=== PATIENT | male | born 1940 | race Caucasian/White ===

== ENCOUNTER → 2018-07-15 14:17 | Outpatient (CLI) | payer MEDICARE, SELFPAY ==
--- NOTE | 2018-07-15 | DI.US.S_ITS ---
PROCEDURE: US ABDOMEN COMPLETE INDICATIONS: HEPATOMEGALY TECHNIQUE: Real-time scanning was performed of the abdominal and retroperitoneal organs, with image documentation. COMPARISON: None. FINDINGS: Liver: Liver is normal in size and homogeneous in echotexture. Gallbladder: No gallstones identified. Normal gallbladder wall. No pericholecystic fluid. Negative sonographic Fowler sign. Biliary ducts: Intrahepatic bile ducts are non-dilated. Extrahepatic bile duct caliber measures 2.0 mm. Normal is 6-7 mm or less in diameter, or 10 mm or less post-cholecystectomy. Pancreas: Visualized portions of the pancreas are sonographically normal. Spleen: Spleen is normal in size and homogeneous in echotexture. Kidneys: Kidneys are normal in size and echotexture. Right kidney measures 11.9 cm long; left kidney measures 11.6 cm long. No hydronephrosis or nephrolithiasis. No solid masses. Aorta: Visualized aorta is normal in caliber at less than 3 cm. Iliacs: Not visualized. IVC: Intrahepatic inferior vena cava is patent. Miscellaneous: No free abdominal fluid. IMPRESSION: 1. Normal exam. Dictated by: Mahesh Noble [facility] Interpreted: Samir Hall MD on 07/15/2018 at 15:17 Approved by: Samir Hall M.D. on 07/15/2018 at 16:42
--- NOTE | 2018-07-15 | DI.RAD.S_ITS ---
PROCEDURE: XR CHEST 2V INDICATIONS: COUGH TECHNIQUE: 2 views of the chest were acquired. COMPARISON: [facility], , CHEST 2 VIEW, 10/20/2011, 10:16. FINDINGS: Surgical changes and devices: None. Lungs and pleura: No pleural effusions or pneumothorax. Lungs are clear. Mediastinum: Mediastinal contours are normal. Heart size is normal. Bones and chest wall: No suspicious bony abnormalities. Soft tissues appear unremarkable. IMPRESSION: No acute pulmonary process. Dictated by: Sara Henderson M.D. on 07/15/2018 at 15:17 Approved by: Sara Henderson M.D. on 07/15/2018 at 15:17
--- NOTE | 2018-07-15 | DI.RAD.S_ITS ---
PROCEDURE: XR LUMBAR SPINE 2-3V INDICATIONS: CHRONIC RIGHT SIDED LOW BACK PAIN WITHOUT SCIATICA TECHNIQUE: 3 views of the lumbar spine were acquired. COMPARISON: None. FINDINGS: Bones: 5 [id number] vertebrae are present. There is trace retrolisthesis of L1 on L2, L2 on L3, L3 and L4, L4-L5 and L5 on S1. Mild multilevel disc space narrowing is present. There is moderate to severe foraminal narrowing at L5-S1, minimal at L1-L2, L3-4. No vertebral body compression fractures. No suspicious bony lesions. Soft tissues: Overlying bowel gas pattern is normal. No suspicious soft tissue calcifications. IMPRESSION: Multilevel degenerative changes as above. Dictated by: Sara Henderson M.D. on 07/15/2018 at 15:17 Approved by: Sara Henderson M.D. on 07/15/2018 at 15:18
== END ==
PROVIDERS: PCP Family Medicine; Visit Provider Family Medicine
DX: R16.0 Hepatomegaly, not elsewhere classified (principal); R05 Cough; M54.5 Low back pain; G89.29 Other chronic pain; M85.88 Other specified disorders of bone density and structure, other site; M47.816 Spondylosis without myelopathy or radiculopathy, lumbar region; M47.817 Spondylosis without myelopathy or radiculopathy, lumbosacral region
CPT/HCPCS: 71046; 72100; 76700

== ENCOUNTER 2019-06-07 09:10 | Day surgery (SDC) | payer MEDICARE, SELFPAY ==
[2019-06-07] MEDS: PROPARACAINE 0.5% OPHTH SOL 2 DROPS EYE-OP (10:03)
[2019-06-07 10:04] VITALS: BMI 26.4
[2019-06-07] MEDS: CATARACT EYE COMPOUND (10 DROPS/SYRINGE) 3 DROPS EYE-OP (10:09)
[2019-06-07 10:10] VITALS: BP 101/65; PULSE 58; RESP 16; TEMP 36.4; O2SAT 98
--- NOTE | 2019-06-07 10:53 | PM.PREOP ---
Pre-operative Note Interval Note History & Physical reviewed/Exam performed by Physician: No Changes to H&P: No
--- NOTE | 2019-06-07 10:53 | PM.OP.1 ---
Operative Date/Time/Diagnoses Pre-op diagnosis: Nuclear cataract right eye Procedure & Clinicians Procedure: Cataract Surgery Same procedure as scheduled: Yes Surgeon: Alonzo Hollis Anesthesia Type: MAC +/- and Sedation Operative Notes Procedure in detail: Patient brought to the operating suite. Tetracaine drops placed in the right eye. Marking instrument was used to zack the vertical and horizontal meridians. Patient was prepped and draped in sterile manner. Wire lid speculum was placed in the eye. Marking instrument was used to zack the 30 degree meridain. Betadine drops were placed on the eye. This was irrigated. Lidocaine jelly was placed on the eye. A paracentesis port was created with a side-port blade. 0.1 mL 1% preservative free lidocaine was injected into the anterior chamber. The anterior chamber was deepened with viscoelastic. 2.6 mm keratome was used to create a temporal clear corneal incision. Cystotome and Utrata forceps were used to create continuous tear capsulorrhexis. Balanced salt solution was used to hydro dissect the nucleus. The phacoemulsification handpiece was inserted and the nucleus was removed using the stop and chop technique. The irrigation aspiration handpiece was inserted and the remaining cortex was removed. Anterior chamber was deepened with viscoelastic. An Summers [id number] intraocular lens with a power of 20.0 was injected into the capsular bag. Irrigation aspiration handpiece was inserted and the remaining viscoelastic was removed. The lens was rotated to the 30 degree meridian. Incision was hydrated with balanced salt solution and found to be leak free with pressure with Weck-Melisa sponges. 0.1 mL Vigamox injected anterior chamber. 0.3 mL Kenalog 10 mg was injected subconjunctivally. Lid speculum was removed. The patient left the operating room in excellent condition. Complications: none Post-operative Condition: stable Disposition: same day surgery
--- NOTE | 2019-06-07 11:38 | SUR.OPER ---
Supine on eye stretcher, head on extension cradle secured with tape. Arms tucked at sides with blanket. Pillow under knees.
[2019-06-07] MEDS: PHENYLEPHRINE/LIDOCAINE VIAL (OR) 0.2 ML EYE-OP (11:39)
[2019-06-07] MEDS: TRIAMCINOLONE 50 MG/5 ML VIAL INJ (11:40)
[2019-06-07] MEDS: TETRACAINE 0.5% OPHTH DROPS 4 ML 2 DROPS EYE-OP (11:40)
[2019-06-07] MEDS: LIDOCAINE JELLY 2% 5 ML 1 APPLIC TOP (11:40)
[2019-06-07] MEDS: CHONDROIDTIN/SOD HYALURONATE 1.05 ML SYRINGE INTRAOCULA (11:40)
[2019-06-07] MEDS: BALANCED SALT IRRIG SOLN NO.2 500 ML, EPINEPHrine 1 MG IRR (11:41)
[2019-06-07] MEDS: MOXIFLOXACIN INJ 5 MG/ML VIAL EYE-OP (11:41)
[2019-06-07 12:00] VITALS: BP 109/71; PULSE 58; RESP 16; TEMP 36.2; O2SAT 99
== END 2019-06-07 12:10 | disposition home or self-care (01) ==
PROVIDERS: PCP Family Medicine; Visit Provider Ophthalmology
PROC: (CPT 66984; principal; 2019-06-07 11:15)
DX: H25.11 Age-related nuclear cataract, right eye (principal)
CPT/HCPCS: 66984; J0171; J2250; J3301; V2787

== ENCOUNTER 2019-06-21 09:13 | Day surgery (SDC) | payer MEDICARE, SELFPAY ==
[2019-06-21 09:50] VITALS: BP 111/65; PULSE 48; RESP 18; TEMP 36.3; O2SAT 98; BMI 25.1
[2019-06-21] MEDS: PROPARACAINE 0.5% OPHTH SOL 2 DROPS EYE-OP (10:00)
[2019-06-21] MEDS: CATARACT EYE COMPOUND (10 DROPS/SYRINGE) 3 DROPS EYE-OP (10:04)
--- NOTE | 2019-06-21 10:29 | PM.PREOP ---
Pre-operative Note Interval Note History & Physical reviewed/Exam performed by Physician: No Changes to H&P: No
--- NOTE | 2019-06-21 10:29 | PM.OP.1 ---
Operative Date/Time/Diagnoses Pre-op diagnosis: Nuclear Cataract Left eye Post-op diagnosis: same Procedure & Clinicians Surgeon: Alonzo Hollis Anesthesia Type: MAC +/- and Sedation Operative Notes Procedure in detail: Patient brought to the operating suite. Tetracaine drops placed in the left eye. Marking instrument was used to zack the vertical and horizontal meridians. Patient was prepped and draped in sterile manner. Wire lid speculum was placed in the eye. marking instrument was used to zack the 150 degree meridian. Betadine drops were placed on the eye. This was irrigated. Lidocaine jelly was placed on the eye. A paracentesis port was created with a side-port blade. 0.1 mL 1% preservative free lidocaine was injected into the anterior chamber. The anterior chamber was deepened with viscoelastic. 2.6 mm keratome was used to create a temporal clear corneal incision. Cystotome and Utrata forceps were used to create continuous tear capsulorrhexis. Balanced salt solution was used to hydro dissect the nucleus. The phacoemulsification handpiece was inserted and the nucleus was removed using the stop and chop technique. The irrigation aspiration handpiece was inserted and the remaining cortex was removed. Anterior chamber was deepened with viscoelastic. An Summers [id number] intraocular lens with a power of 21.5 was injected into the capsular bag. Irrigation aspiration handpiece was inserted and the remaining viscoelastic was removed. The lens was rotated to the 150 degree meridian. Incision was hydrated with balanced salt solution and found to be leak free with pressure with Weck-Melisa sponges. 0.1 mL Vigamox injected anterior chamber. 0.3 mL Kenalog 10 mg was injected subconjunctivally. Lid speculum was removed. The patient left the operating room in excellent condition. Complications: none Post-operative Condition: stable Disposition: same day surgery
[2019-06-21] MEDS: BALANCED SALT IRRIG SOLN NO.2 500 ML, EPINEPHrine 1 MG IRR (10:42)
[2019-06-21] MEDS: CHONDROIDTIN/SOD HYALURONATE 1.05 ML SYRINGE INTRAOCULA (10:43)
[2019-06-21] MEDS: MOXIFLOXACIN INJ 5 MG/ML VIAL EYE-OP (10:43)
[2019-06-21] MEDS: TETRACAINE 0.5% OPHTH DROPS 4 ML 2 DROPS EYE-OP (10:43)
[2019-06-21] MEDS: LIDOCAINE JELLY 2% 5 ML 1 APPLIC TOP (10:43)
[2019-06-21] MEDS: TRIAMCINOLONE 50 MG/5 ML VIAL INJ (10:44)
[2019-06-21] MEDS: PHENYLEPHRINE/LIDOCAINE VIAL (OR) 0.2 ML EYE-OP (10:44)
[2019-06-21 11:04] VITALS: BP 113/70; PULSE 54; RESP 18; TEMP 36.1; O2SAT 100
== END 2019-06-21 11:22 | disposition home or self-care (01) ==
PROVIDERS: Family Provider Family Medicine; PCP Family Medicine; Visit Provider Ophthalmology
PROC: (CPT 66984; principal; 2019-06-21 11:15)
DX: H25.12 Age-related nuclear cataract, left eye (principal)
CPT/HCPCS: 66984; J0171; J2250; J3301; V2787

== ENCOUNTER → 2020-04-10 09:28 | Outpatient (CLI) | payer MEDICARE, SELFPAY ==
--- NOTE | 2020-04-10 | DI.MRI.S_ITS ---
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 COMPARISON: None. FINDINGS: Image quality: Excellent. Alignment and Curvature: There is normal bony alignment. Bone Marrow: Marrow demonstrates normal overall signal. Spinal Cord: Visualized spinal cord has normal size and signal. No cerebellar tonsillar herniation. Paraspinous Soft Tissues: No paravertebral masses. Prevertebral soft tissues are normal in thickness. C2-C3: There is mild degenerative disc disease with a posterior transverse broad-base disc bulge most prominent at the midline. This effaces CSF from the anterior thecal sac but does not distort the cord and no foraminal stenosis is found. Mild spinal stenosis appears present as a result. C3-C4: Slight degenerative disc disease, slight effacement of CSF from the anterior thecal sac without cord distortion. No foraminal stenosis. No significant spinal stenosis. C4-C5: Slight degenerative disc disease, mild facet osteoarthritis. No definite foraminal stenosis. No significant spinal stenosis. C5-C6: At this level there is a mild degree of degenerative disc disease with a mild posterior transverse disc bulge at the midline, and in the adjacent anterior spinal canal. There is a small degree of foraminal stenosis, slightly greater on the right than the left, and only a mild degree of anterior spinal stenosis is seen. The anterior cord is slightly flattened, but it is not displaced posteriorly within the spinal canal. C6-C7: The degenerative changes at this level are [id number], there is a posterior mild disc bulge. Facet osteoarthritis is mild to moderate and there is [id number] symmetric foraminal stenosis potentially impinging on the course of the C7 nerve roots. C7-T1: No significant spinal or foraminal stenosis. IMPRESSION: Multilevel degenerative disc disease, but mild in severity overall. Also, facet osteoarthritis is relatively mild in this patient. The most prominent degree of degenerative changes are seen at C5-6 and C6-7, without subluxation, and no disc herniation is found. Dictated by: Mateus Carbone M.D. on 04/10/2020 at 14:58 Approved by: Mateus Carbone M.D. on 04/10/2020 at 15:03
--- NOTE | 2020-04-10 | DI.RAD.S_ITS ---
PROCEDURE: XR CERVICAL SPINE 2V OR 3V INDICATIONS: CERVICAL DISC DISORDER AT C5-C6 LVL W/ MYELOPATHY TECHNIQUE: 3 view(s) of the cervical spine were acquired. COMPARISON: None. FINDINGS: Bones: No fractures or dislocations to the T1 level. The lateral masses of C1 appear intact on the odontoid view. No suspicious bony lesions. Multilevel disc degeneration, most notably in moderate at the C6-C7 and C7-T1 levels. Mild multilevel uncovertebral hypertrophy. Soft tissues: No prevertebral soft tissue swelling. IMPRESSION: Mild multilevel spondylosis. Dictated by: Mahesh OROZCO Interpreted: Sara Henderson MD on 04/10/2020 at 11:23 Approved by: Sara Henderson M.D. on 04/10/2020 at 15:00
== END ==
PROVIDERS: Family Provider Family Medicine; PCP Family Medicine; Referring Provider Family Medicine; Visit Provider Family Medicine
DX: M50.022 Cervical disc disorder at C5-C6 level with myelopathy (principal); M47.12 Other spondylosis with myelopathy, cervical region
CPT/HCPCS: 72040; 72141

== ENCOUNTER → 2021-01-22 09:37 | Outpatient (CLI) | payer MEDICARE, SELFPAY ==
--- NOTE | 2021-01-22 09:39 | DI.RAD.S_ITS ---
PROCEDURE: XR KNEE LT 3V INDICATIONS: CHRONIC KNEE PAIN TECHNIQUE: 3 views of the knee were acquired. COMPARISON: None. FINDINGS: Bones: No fractures or dislocations. No suspicious bony lesions. Soft tissues: No joint effusion. No suspicious soft tissue calcifications. IMPRESSION: No trauma found. Dictated by: Mateus Carbone M.D. on 01/22/2021 at 10:24 Approved by: Mateus Carbone M.D. on 01/22/2021 at 10:25
--- NOTE | 2021-01-22 09:39 | DI.RAD.S_ITS ---
PROCEDURE: XR KNEE RT 3V INDICATIONS: CHRONIC KNEE PAIN TECHNIQUE: 3 views of the knee were acquired. COMPARISON: None. FINDINGS: Bones: No fractures or dislocations. No suspicious bony lesions. Soft tissues: No joint effusion. There is prepatellar soft tissue thickening anterior and to the inferior margin of the patella. No suspicious soft tissue calcifications. IMPRESSION: No trauma found. Prepatellar soft tissue thickening is seen on the lateral view-please correlate for chronicity and etiology. Dictated by: Mateus Carbone M.D. on 01/22/2021 at 10:25 Approved by: Mateus Carbone M.D. on 01/22/2021 at 10:26
== END ==
PROVIDERS: Family Provider Family Medicine; PCP Family Medicine; Referring Provider Family Medicine; Visit Provider Family Medicine
DX: M25.561 Pain in right knee (principal); M25.562 Pain in left knee; G89.29 Other chronic pain
CPT/HCPCS: 73562

== ENCOUNTER → 2021-02-14 17:53 | Outpatient (CLI) | payer MEDICARE, SELFPAY ==
[2021-02-14 18:37] LABS: C-Reactive Protein Quant < 0.5 mg/dL (<1.0); Uric Acid 4.7 mg/dL (3.5-8.5)
[2021-02-14 18:40] LABS: Rheumatoid Factor < 8.6 IU/mL (<12.0)
[2021-02-14 20:10] LABS: Erythrocyte Sedimentation Rate 5 MM/HR (0-15)
[2021-02-16 17:23] LABS: ANA Screen, IFA Negative (.)
== END ==
PROVIDERS: Family Provider Family Medicine; PCP Family Medicine; Referring Provider Orthopaedic Surgery; Visit Provider Orthopaedic Surgery
DX: M25.461 Effusion, right knee (principal); M25.462 Effusion, left knee
CPT/HCPCS: 36415; 84550; 85651; 86038; 86140; 86430

== ENCOUNTER → 2021-10-21 11:06 | Outpatient (CLI) | payer MEDICARE, SELFPAY ==
[2021-10-21 19:17] LABS: Add Manual Diff / Slide Review NO; Basophils Absolute Auto 100 /uL (0-100); Basophils Percent Auto 1.1 % (0-2); Eosinophils Absolute Auto 200 /uL (0-450); Hematocrit 42.3 % (41-53); Hemoglobin 14.3 g/dL (13.5-17.5); Lymphocytes Absolute Auto 1400 /uL (1100-4500); Mean Corpuscular HGB Conc 33.8 % (30-36); Mean Corpuscular Hemoglobin 30.2 PG (26-34); Mean Corpuscular Volume 89.5 fL (80-100); Monocytes Absolute Auto 600 /uL (0-900); Monocytes Percent Auto 7.3 % (3-14); Neutrophils Absolute Auto 5700 /uL (1500-7000); Neutrophils Percent Auto 71.6 % (50-75); Platelet Count 181 X10^3/uL (150-400); Red Blood Cell Count 4.73 X10^6/uL (4.5-5.9); Red Cell Distribution Width 13.9 % (11.6-14.8); White Blood Cell Count 7.9 X10^3/uL (4.5-11.0)
[2021-10-21 19:37] LABS: Alanine Aminotransferase 16 IU/L (<50); Albumin 4.3 g/dL (3.5-5.0); Albumin Globulin Ratio 1.8 (1.0-2.8); Alkaline Phosphatase 50 U/L (38-126); Aspartate Aminotransferase 28 IU/L (17-59); BUN Creatinine Ratio 26.1 (6-22); Bilirubin Total 0.4 mg/dL (0.2-1.3); Blood Urea Nitrogen 24 mg/dL (9-20); Calcium 9.1 mg/dL (8.4-10.2); Carbon Dioxide 28 mmol/L (22-32); Chloride 105 mmol/L (98-107); Estimated Glomerular Filt Rate > 60.0 mL/min (>60); Globulin 2.4 g/dL (1.7-4.1); Glucose 92 mg/dL (80-110); HEMOLYSIS < 15 (0-50); Potassium 4.4 mmol/L (3.4-5.1); Sodium 140 mmol/L (137-145); Total Protein 6.7 g/dL (6.3-8.2)
[2021-10-21 20:08] LABS: Prostate Specific Antigen Scrn 0.183 ng/mL (0.1-4.0)
== END ==
PROVIDERS: Family Provider Family Medicine; PCP Family Medicine; Visit Provider Family Medicine
DX: M81.0 Age-related osteoporosis without current pathological fracture (principal); Z12.5 Encounter for screening for malignant neoplasm of prostate
CPT/HCPCS: 80053; 85025; G0103

== ENCOUNTER → 2021-12-12 11:28 | Outpatient (CLI) | payer MEDICARE, SELFPAY ==
[2021-12-12 19:31] LABS: TSH w/ Reflex to FT4 0.84 uIU/mL (0.47-4.68)
[2021-12-12 20:18] LABS: Vitamin B12 806 pg/mL (239-931)
== END ==
PROVIDERS: Family Provider Family Medicine; PCP Family Medicine; Visit Provider Family Medicine
DX: R53.83 Other fatigue (principal)
CPT/HCPCS: 82607; 84443

== ENCOUNTER 2023-05-03 08:12 | Emergency (ER) | payer MEDICARE, SELFPAY ==
[2023-05-03 08:15] VITALS: BP 109/70; PULSE 73; RESP 18; TEMP 36.7; O2SAT 100; BMI 25.8
[2023-05-03 08:25] VITALS: PULSE 69; O2SAT 99
[2023-05-03 08:26] VITALS: BP 92/60; PULSE 71; O2SAT 99
[2023-05-03 08:30] VITALS: BP 90/52; PULSE 56; O2SAT 96
--- NOTE | 2023-05-03 08:42 | ED_ITS ---
HPI - General Adult General Chief complaint: Urogenital-Male Stated complaint: Unable to urinate Time Seen by Provider: 05/03/23 08:17 Source: patient Mode of arrival: EMS Limitations: no limitations History of Present Illness HPI narrative: Patient is an 83-year-old male. States he has never had an issue with his prostate although he is on tamsulosin. He states he was placed on this medication to try to decrease the amount that he urinates at night. He denies any fevers. He states that he felt like he had a last normal urination almost 48 hours ago. This was a day after he had a COVID shot. He started to then have vomiting. Has been several hours since he has had any urine output. Is having quite a bit of lower abdominal discomfort. Has never had a Del Cid catheter before. Related Data Previous Rx's Medication Instructions Recorded ibuprofen 800 mg tablet See Rx Instructions .Route 02/26/22 .COMPLEX #60 tabs alendronate 70 mg tablet 70 mg PO QWEEK #12 tabs 07/21/22 finasteride 5 mg tablet 5 mg PO QDAY #90 tabs 07/21/22 omeprazole 40 mg capsule,delayed 40 mg PO DAILY #90 caps 07/21/22 release trazodone 50 mg tablet 25 mg PO BEDTIME #45 tabs 08/29/22 bupropion HCl 100 mg tablet,12 hr 100 mg PO BID #180 ea 12/23/22 sustained-release (Wellbutrin SR) citalopram 40 mg tablet 40 mg PO DAILY #90 tabs 12/23/22 tamsulosin 0.4 mg capsule 0.8 mg PO DAILY #180 caps 12/23/22 Allergies Allergy/AdvReac Type Severity Reaction Status Date / Time No Known Drug Allergies Allergy Verified 05/03/23 08:54 Review of Systems Constitutional Constitutional: Reports system reviewed and no additional complaints, except as documented Gastrointestinal Gastrointestinal: Reports system reviewed and no additional complaints, except as documented Genitourinary Genitourinary: Reports system reviewed and no additional complaints, except as documented Integumentary/Breasts Skin/Breast: Reports system reviewed and no additional complaints, except as documented Patient History Medical History Acute pain associated with inflammation Benign prostatic hyperplasia without lower urinary tract symptoms Bilateral hearing loss BPH (benign prostatic hyperplasia) Constipation, unspecified Diarrhea, unspecified Dog bite (~12/19/19) Hearing loss Impacted cerumen, bilateral Insomnia Right knee pain Routine general medical examination at health care facility Travel advice encounter Surgical History (Updated 10/22/21 @ 20:18 by rBittany Monterroso) Anesthesia History of tonsillectomy (~1950) Family History (Updated 10/22/21 @ 20:19 by Brittany Monterroso) Father Diabetes mellitus Family/Other Developmental disability Social History household members: spouse Smoking Status: Never smoker Smoking Status: Never smoker Exam Initial Vital Signs Initial Vital Signs: Vital Signs Temperature 98.1 F 05/03/23 08:15 Pulse Rate 73 05/03/23 08:15 Respiratory Rate 18 05/03/23 08:15 Blood Pressure 109/70 05/03/23 08:15 Pulse Oximetry 100 05/03/23 08:15 Oxygen Delivery Method Room Air 05/03/23 08:15 HENMT Head: normal to inspection and normocephalic Resp Effort & Inspection: normal respiratory effort Cardio Rate: regular rate Other: Del Cid catheter in place, normal external male genitalia Skin General: no rashes or lesions noted Course Vital Signs Vital signs: Vital Signs - 8 hr 05/03/23 08:15 05/03/23 08:25 05/03/23 08:26 Temperature 98.1 F Pulse Rate 73 69 Respiratory Rate 18 Blood Pressure 109/70 92/60 Pulse Oximetry 100 99 Oxygen Delivery Method Room Air 05/03/23 08:26 05/03/23 08:30 05/03/23 08:30 Temperature Pulse Rate 71 56 L Respiratory Rate Blood Pressure 90/52 L Pulse Oximetry 99 96 Oxygen Delivery Method Medical Decision Making Lab Data Lab results reviewed: Yes I reviewed the patient's lab results. Labs: Urine Dip Bedside Urine Glucose Negative Bedside Urine Bilirubin - Negative Bedside Urine Ketone - Negative Urine Specific Keystone 1.015 Bedside Urine Occult Blood - Negative Bedside Urine pH 6.5 Bedside Urine Protein - Negative Bedside Urine Urobilinogen - Negative Bedside Urine Nitrite - Negative Bedside Urine Leukocytes - Negative Esterase Point of care testing: Urine Dip Bedside Urine Glucose Negative Bedside Urine Bilirubin - Negative Bedside Urine Ketone - Negative Urine Specific Keystone 1.015 Bedside Urine Occult Blood - Negative Bedside Urine pH 6.5 Bedside Urine Protein - Negative Bedside Urine Urobilinogen - Negative Bedside Urine Nitrite - Negative Bedside Urine Leukocytes - Negative Esterase MDM Narrative Medical decision making narrative: Del Cid catheter was placed with a return of greater than 1 L of urine. His urinalysis shows no signs of infection. He is on Flomax already. Will discharge patient home with Del Cid catheter in place and instructions to contact Urology for follow-up. Discharge Plan Departure Patient Disposition: Home Clinical Impression: Acute urinary retention Instructions: How to Care for Your Del Cid Catheter -- Male, DI for Urinary Retention in Men Activity Restrictions/Additional Instructions: Recommend you continue to take all of your medications as directed. Tomorrow contact the urology office at the number provided below for a follow-up later this week to discuss having the urinary catheter removed and further workup. Return to the emergency department for new symptoms. Prescriptions: No Action ibuprofen 800 mg tablet See Rx Instructions .ROUTE .COMPLEX Qty: 60 1RF Dose Instruction: TAKE 1 TABLET EVERY 8 HOURSAS NEEDED FOR PAIN Rx Instructions: TAKE 1 TABLET EVERY 8 HOURSAS NEEDED FOR PAIN alendronate 70 mg tablet 70 mg PO QWEEK Qty: 12 3RF finasteride 5 mg tablet 5 mg PO QDAY Qty: 90 3RF omeprazole 40 mg capsule,delayed release(DR/EC) 40 mg PO DAILY Qty: 90 3RF trazodone 50 mg tablet 25 mg PO BEDTIME Qty: 45 3RF bupropion HCl [Wellbutrin SR] 100 mg tablet sustained-release 12 hr 100 mg PO BID Qty: 180 3RF citalopram 40 mg tablet 40 mg PO DAILY Qty: 90 3RF tamsulosin 0.4 mg capsule 0.8 mg PO DAILY Qty: 180 3RF Referrals: Sandip He MD [Physician] - Dannie Mccarthy MD [Primary Care Provider] - Stand Alone Forms: Patient Portal/API
[2023-05-03 09:00] VITALS: BP 92/52; PULSE 55; O2SAT 96
== END 2023-05-03 09:35 | disposition home or self-care (01) ==
PROVIDERS: Emergency Provider Emergency Medicine; Family Provider Family Medicine; PCP Family Medicine
DX: R33.9 Retention of urine, unspecified (principal)
CPT/HCPCS: 51702; 51798; 81003; 99283

== ENCOUNTER → 2023-05-26 11:26 | Outpatient (CLI) | payer MEDICARE, SELFPAY | PROVIDERS: Family Provider Family Medicine; PCP Family Medicine; Visit Provider Specialist | DX: N39.0 Urinary tract infection, site not specified (principal); R33.9 Retention of urine, unspecified; N40.1 Benign prostatic hyperplasia with lower urinary tract symptoms; N13.8 Other obstructive and reflux uropathy; N30.01 Acute cystitis with hematuria; Z68.25 Body mass index [BMI] 25.0-25.9, adult | CPT/HCPCS: 51798; 81002; 87077; 87086; 87186; 96372; 99215; J0694 ==

== ENCOUNTER 2023-06-08 10:50 | Day surgery (SDC) | payer MEDICARE, SELFPAY ==
[2023-06-03 11:26] VITALS: BMI 26.4
[2023-06-08] VITALS (12 sets, daily range): BP systolic 104–133; BP diastolic 49–68; PULSE 61–74; RESP 10–20; TEMP 35.9–36.6; O2SAT 93–100; BMI 26.4
--- NOTE | 2023-06-08 | PATH_ITS ---
[facility] Accession Number: [id number] No. of containers..01 Tissue . 01 Material submitted: . prostate - PROSTATE CHIPS . 01 Diagnosis: Prostate Chips (Weight 7 grams): Benign prostatic tissue with patchy stromal and glandular hyperplasia. MRV 06/17/2023 1538 Local . 01 Electronically signed: . Justyna Briones MD, Pathologist NPI- [id number] . 01 Gross description: . The specimen is received in formalin with no patient identifiers and no designation (authorization form received), and consists of multiple nelson, rubbery soft tissue fragments weighing 7 grams and aggregating to 4.4 x 4.0 x 1.3 cm. No discrete lesions are identified. Specimen is submitted entirely in cassettes A1-A4. ([id number]) /KAL 06/16/2023 0941 Local . 01 Microscopic: . An immunohistochemistry staining cocktail of high molecular weight cytokeratin (HMWK)+p63 is performed to further identify the cells of interest. The controls stain appropriately. . RESULTS Block A3 HMWK+p63: Positive in region of interest. . The presence of HMWCK+p63 at the focus interest mitigates against the presence of prostatic adenocarcinoma in this tissue. . * This test was developed and its performance characteristics determined by [facility]. It has not been cleared or approved by the U.S. Food and Drug Administration. The FDA has determined that such clearance or approval is not necessary. This test is used for clinical purposes. It should not be regarded as investigational or for research. . 01 Pathologist provided ICD-10: R33.9, N32.0, N40.1 . 01 CPT . 557110, C30281 Specimen Comment: A courtesy copy of this report has been sent to [phone] Performed at: 01 [facility] [address] [facility], [place], [place] [id number] MD Dimitry Walsh MD Phone: [phone]
[2023-06-08] MEDS: LACTATED RINGERS 1,000 ML 42 ML IV (12:13)
[2023-06-08] MEDS: ACETAMINOPHEN IV 1,000 MG/100 ML VIAL 400 MG IV (12:14)
[2023-06-08] MEDS: VANCOMYCIN 1,000 MG/200 ML PIGGYBACK 200 MG IV (12:27)
--- NOTE | 2023-06-08 13:47 | PM.PREOP ---
Pre-operative Note Interval Note History & Physical reviewed/Exam performed by Physician: Yes Changes to H&P: No
[2023-06-08] MEDS: GENTAMICIN 240 MG in SODIUM CHLORIDE 0.9% 100 ML 106 MG IV (15:13)
--- NOTE | 2023-06-08 15:29 | SUR.OPER ---
Lithotomy on padded OR bed, head on pillow, arms secured on padded arm boards at <90 degrees abduction. Legs secured in padded yellow fins stirrups.
[2023-06-08] MEDS: TRANEXAMIC ACID 1,000 MG in SODIUM CHLORIDE 0.9% 100 ML 200 MG IV (15:53)
[2023-06-08] MEDS: LACTATED RINGERS 1,000 ML 21 ML IV (16:06)
--- NOTE | 2023-06-08 16:08 | P.OP_ITS ---
Operative Date/Time/Diagnoses Date of procedure: 06/08/23 Time of procedure: 16:08 Pre-op diagnosis: 1. Bladder outlet obstruction. 2. History of urinary retention. Post-op diagnosis: same Procedure & Clinicians Procedure: 1. Transurethral resection of prostate. Same procedure as scheduled: Yes Indications: 1. Bladder outlet obstruction. 2. History of urinary retention. Surgeon: Warren Steel Click Yes if Unassisted: Yes Anesthesia Type: General Operative Notes Findings: 1. Urethra-normal caliber without annular stricture or lesion. 2. External sphincter-slightly gaping with normal overlying vascularity. 3. Prostate-4 cm length with markedly elevated median bar and moderate lateral lobe hyperplasia. 4. bladder-2+ trabeculation. Cellule formation and various areas. Ureteral orifices in normal position bilaterally with clear efflux. Closure Type: not applicable Specimen(s): other (Prostate chips) Applied: catheter ([address] hematuria catheter to normal saline continuous bladder irrigation.) Estimated Blood Loss (mL): 5 Blood products transfused: none Procedure in detail: The patient was positioned in supine was administered general anesthesia. The patient was then repositioned in semi lithotomy in the lower abdomen, genitalia, and groin were then prepped and draped in sterile fashion. The resectoscope was then advanced lower urinary tract under direct visualization with the findings as described above. A TUR loop was then fitted to the working element. Incisions were made at the 1 and 11 positions from bladder neck to a point just proximal of the verumontanum. The intervening anterior tissue was then resected to a level near the capsule. Next, the left followed by the right lateral lobe was resected from bladder neck to a point just proximal of the verumontanum again to a depth near the surgical capsule. Now the markedly elevated median lobe and intravesical protrusion of median lobe lip was resected from bladder neck to a point just proximal to the verumontanum. This resulted in a widely patent prostate fossa and bladder neck. Hemostasis was attained with the cautery mode with the loop. All chips were then collected and submitted to pathology for routine gross and microscopic examination hydrostatically and with the assistance of the Ilana evacuator. A 22 Kazakh, [address] hematuria catheter was then advanced into the bladder, the balloon inflated 30 cc and then to normal saline continuous bladder irrigation to gravity drainage. The patient was then repositioned in supine, was awakened, and then transferred to [facility] for transport to recovery awake and in stable condition. Complications: none Post-operative Condition: stable Disposition: PACU Plan for aftercare: Admit to acute care outpatient with a bed status.
[2023-06-08] MEDS: OXYCODONE IR 5 MG TABLET PO (16:33)
[2023-06-08] MEDS: TRIMETH/SULFA 160/800 (DS) TABLET 1 TAB PO (20:45)
[2023-06-08] MEDS: TRAZODONE 50 MG TABLET 25 MG PO (20:46)
[2023-06-08] MEDS: buPROPion SR 100 MG TAB PO (20:46)
[2023-06-09] VITALS: BP 98/51; PULSE 60; RESP 16; TEMP 36.2; O2SAT 96
[2023-06-09 04:00] VITALS: BP 99/49; PULSE 65; RESP 19; TEMP 36.8; O2SAT 95
[2023-06-09] MEDS: PANTOPRAZOLE DR 40 MG TABLET PO (05:03)
[2023-06-09 08:00] VITALS: BP 108/50; PULSE 68; RESP 18; TEMP 36.4; O2SAT 96
[2023-06-09] MEDS: FINASTERIDE 5 MG TABLET PO (08:13)
[2023-06-09] MEDS: TRIMETH/SULFA 160/800 (DS) TABLET 1 TAB PO (08:13)
[2023-06-09] MEDS: TAMSULOSIN 0.4 MG CAPSULE 0.8 MG PO (08:13)
[2023-06-09] MEDS: buPROPion SR 100 MG TAB PO (08:13)
--- NOTE | 2023-06-09 12:31 | PC.NURSE ---
A/O, voices needs. ind w/ mobility, ADLs. CBI s/p TURP POD 1. urine is light pink. scant bleeding / small dry clots at insertion site of liu, area cleansed w/ warm water & washcloth. Dr Steel doing rounds, verbal order received to remove liu. encourage patient to ambulate, and PVR after first void. contact MD if > 200. liu removed, several small clots in the liu, tip is intact. 1000: first void: light pink urine, 150cc. PVR 22cc. patient tolerated ambulating up and down hallway w/ strong steady gait. 1200: Dr steel to see patient. d/c orders received, w/ instructions for patient to see him in office in 6 weeks, prior to a trip patient and his plan to take in near future. see dc.
--- NOTE | 2023-06-09 12:33 | P.DS_ITS ---
History of Present Illness History of Present Illness Date Patient Seen: 06/09/23 Time Patient Seen: 07:30 Chief complaint: TURP Narrative: Jared is an 83-year-old gentleman with a long history of BPH/LUTS on dual therapy with tamsulosin and finasteride the presented in recent week with acute urinary retention of a proximally 1200 cc volume. He subsequently had a successful voiding trial but remained severely symptomatic despite maximal pharmacologic management of bladder outlet obstruction. Lower tract endoscopy revealed a very high median bar and intravesical protrusion of a median lobe lip. Prostate ultrasound measured prostate volume at about normal adult 20 g. Discussion with available options and his desires led to his request to schedule Transurethral resection of the prostate. Discharge Providers Provider Date of admission: 06/08/2023 Discharge Date: 06/09/23 Primary care physician: Dannie Mccarthy MD Discharge provider: Warrne Steel MD Summary Hospital Course Hospital Course: The patient was admitted on 06/08/2023 and underwent uncomplicated Transurethral resection of the prostate under general anesthesia. His postoperative course was entirely unremarkable in that he tolerated general diet immediately postoperatively, was able to ambulate without assistance and had no significant postoperative discomfort. On the morning of 06/09/2023 voiding trial was conducted with supervision. He subsequently voided on 2 occasions without difficulty in the morning with a postvoid residual volume measuring 20 cc. Urine showed some light blood-tinged. No pain or dysuria. By a proximally noon on 06/09/2023 the patient was stable for discharge. Exam Vital Signs (past 8 hours): - 06/09/23 08:00 Temperature 97.5 F L Pulse Rate 68 Respiratory Rate 18 Blood Pressure 108/50 L Pulse Oximetry 96 Oxygen Flow Rate 0 Oxygen Delivery Method Room Air,CPAP Oxygen Flow Rate 0 Narrative Exam Narrative: Ambulating about the room and drinking a beverage in no distress. [facility] Medical History (Updated 06/03/23 @ 11:44 by Anne Cool RN) Self-catheterizes urinary bladder (05/2023) Sleep apnea (~2016) History of urinary retention Urinary retention Hearing loss Insomnia Constipation, unspecified Bilateral hearing loss Diarrhea, unspecified Routine general medical examination at health care facility Travel advice encounter Dog bite (~12/19/19) Impacted cerumen, bilateral Benign prostatic hyperplasia without lower urinary tract symptoms Acute pain associated with inflammation Surgical History (Updated 06/03/23 @ 11:33 by Anne Cool RN) Hx of bilateral cataract extraction (2019) Anesthesia History of tonsillectomy (~1950) Family History Father Diabetes mellitus Family/Other Developmental disability Social History household members: spouse Smoking Status: Never smoker alcohol intake: current Discharge Assessment & Plan Assessment and Plan Assessment: Assessment: 1. Stable postoperative day 1 status post Transurethral resection of the prostate. 2. Pathology pending. Plan of Treatment: Plan: 1. Discharge home today. Post TURP driving, activity, lifting restrictions and follow-up explained per routine. 2. Follow-up and discuss pathology report as outpatient when final. 3. Follow-up in Urology Clinic in 6-8 weeks for clinical update and PVR. Discharge Plan Discharge Plan Patient Disposition: Home Provider Discharge Comment: Please contact the urology clinic to schedule your postop appointment for 6-8 weeks with PVR. Discharge orders & Medications Discharge Orders: Discharge (Order); Ordered 06/09/23 Ordered By: Warren Steel Prescriptions: Continued alendronate 70 mg tablet 70 mg PO QWEEK Qty: 12 3RF finasteride 5 mg tablet 5 mg PO QDAY Qty: 90 3RF omeprazole 40 mg capsule,delayed release(DR/EC) 40 mg PO DAILY Qty: 90 3RF trazodone 50 mg tablet 25 mg PO BEDTIME Qty: 45 3RF bupropion HCl [Wellbutrin SR] 100 mg tablet sustained-release 12 hr 100 mg PO BID Qty: 180 3RF citalopram 40 mg tablet 40 mg PO DAILY Qty: 90 3RF tamsulosin 0.4 mg capsule 0.8 mg PO DAILY Qty: 180 3RF sulfamethoxazole-trimethoprim 800 mg PO 2XD Follow up/Referrals: Dannie Mccarthy MD [Primary Care Provider] - Diet/Activity/Treatments Diet: Diet as Tolerated Activity: Refrain from lifting objects heavier than 15 lb x 4 weeks. Skin/Wound/Dressing Care Report to your healthcare provider any signs of infection, such as:: chills, fever, night sweats, increased pain and unusual drainage Visit Report/Discharge Packet Instructions: DI for Transurethral Resection of the Prostate Stand Alone Forms: Surgery Discharge Discharge Data Primary Care Provider: Dannie Mccarthy Attending Provider: Warren Steel
--- NOTE | 2023-06-09 14:33 | CM.DANOTE ---
Patient is an 83 yo male who was admitted on 06/08/23 for TURP. Pt has [facility] for insurance and his PCP is Dr. Dannie Mccarthy. EMR was reviewed. Per Urologist, pt tolerated TURP procedure well and has voided independently, ambulated, and tolerated diet and medically stable to d/c home with outpt f/u in 6 weeks. Per RN, no concerns noted at this time. SW observed pt making multiple laps around the hallways with steady gait and no need for DME and pt confirms he lives on [facility] with his and both are active and independent at baseline and drive. Pt denies any hx of HH or SNF and does not anticipate any needs at d/c. Spouse will provide transport back to [place] today and then pt will have his f/u appointment with Urology after discharge and prior to a vacation trip pt has planned with his in a month and a half. Plan: Patient to d/c home today via spouse POV and outpt f/u and no further SW needs at this time. TONE Duncan Discharge Planning/Care Management Pre-Anesthesia Assessment Start: 06/03/23 11:26 Freq: Status: Active Protocol: Document 06/03/23 11:26 [facility] (Rec: 06/03/23 11:41 CAB [id number]) Pre-Anesthesia Assessment Patient Information Reviewed Via Chart Review Primary Care Provider Dannie Mccarthy Seen Specialist in Last 12 Months Yes Specialist Seen Emergency,Urologist Primary Language [place] Preferred Language [place] Marine Technician Required No Height 177.8 cm Weight 83.461 kg Body Mass Index (BMI) 26.4 Hearing Ability Hearing Impaired,Use of Hearing Aid Hx Anesthesia Reactions No Hx Family Anesthesia Reaction No Hx Malignant Hyperthermia No Hx Blood Transfusion Reaction No Anesthesia Review Requested No Manufacturing Plant Technician No alcohol intake current alcohol intake frequency 0-2 drinks per day Smoking Status Never smoker Substance Use Type does not use Pain Present Pain Reported Patient is completely paralyzed or No completely immobile Mental Status Oriented to own ability Hx Sleep Apnea Yes CPAP/BIPAP use prescribed and used routinely Currently Taking a Beta Dalila No Anti-Coagulant Therapy No Cardiac Testing No Hx Pacemaker/ICD No Pacemaker Rep Required? No Cardiac Clearance Received Not Applicable Gastrointestinal Symptoms Reflux Genitourinary Symptoms Hematuria Bladder Pattern Retention Urinary Catheter Present No Hx Urinary Self Catheterization Yes Comment UA Enterobacter cloacae complex 05/26/23 Diabetes No Presence of External or Internal Medical No Devices Marital Status Lives With spouse Patient Discharge Plan Description Return Home Comment Lives on [facility] Advance Directives? Yes
== END 2023-06-09 14:30 | disposition home or self-care (01) ==
LOC: OR 17:11 → AC 17:12
PROVIDERS: Family Provider Family Medicine; PCP Family Medicine; Referring Provider Specialist; Visit Provider Specialist
PROC: 0VT08ZZ Resection of Prostate, Via Natural or Artificial Opening Endoscopic (ICD-10-PCS; CPT 52601; principal; 2023-06-08 13:45)
DX: N40.1 Benign prostatic hyperplasia with lower urinary tract symptoms (principal); N13.9 Obstructive and reflux uropathy, unspecified; R33.9 Retention of urine, unspecified
CPT/HCPCS: 52601; 36415; J0131; J1100; J2405; J2704; J3010

== ENCOUNTER → 2023-07-30 16:55 | Outpatient (CLI) | payer MEDICARE, SELFPAY ==
[2023-06-08 18:08] VITALS: BMI 26.4
== END ==
PROVIDERS: Family Provider Family Medicine; PCP Family Medicine; Visit Provider Specialist
DX: N40.1 Benign prostatic hyperplasia with lower urinary tract symptoms (principal); N13.8 Other obstructive and reflux uropathy; Z09 Encounter for follow-up examination after completed treatment for conditions other than malignant neoplasm; Z87.898 Personal history of other specified conditions
CPT/HCPCS: 51798; 81002; 87086

== ENCOUNTER → 2023-12-08 10:00 | Outpatient (CLI) | payer MEDICARE, SELFPAY ==
[2023-06-08 18:08] VITALS: BMI 26.4
[2023-12-08 19:15] LABS: BUN Creatinine Ratio 27.1 (6-22); Blood Urea Nitrogen 26 mg/dL (9-20); Calcium 9.2 mg/dL (8.4-10.2); Carbon Dioxide 30 mmol/L (22-32); Chloride 106 mmol/L (98-107); Cholesterol 182 mg/dL (140-199); Estimated Glomerular Filt Rate > 60 mL/min (>60); Glucose 87 mg/dL (80-110); HDL Cholesterol 53 mg/dL (40-60); HEMOLYSIS < 15 (0-50); LDL Cholesterol Calculated 105 mg/dL (<100); Potassium 4.4 mmol/L (3.4-5.1); Sodium 140 mmol/L (137-145); Triglycerides 119 mg/dL (35-150)
[2023-12-08 19:17] LABS: Add Manual Diff / Slide Review NO; Basophils Absolute Auto 0 /uL (0-100); Basophils Percent Auto 0.8 % (0-2); Eosinophils Absolute Auto 200 /uL (0-450); Eosinophils Percent Auto 3.9 % (2-4); Hematocrit 41.2 % (41-53); Hemoglobin 13.8 g/dL (13.5-17.5); Lymphocytes Absolute Auto 1400 /uL (1100-4500); Lymphocytes Percent Auto 22.8 % (25-40); Mean Corpuscular HGB Conc 33.5 % (30-36); Mean Corpuscular Hemoglobin 30.4 PG (26-34); Mean Corpuscular Volume 90.8 fL (80-100); Monocytes Absolute Auto 500 /uL (0-900); Monocytes Percent Auto 8.8 % (3-14); Neutrophils Absolute Auto 3800 /uL (1500-7000); Neutrophils Percent Auto 63.7 % (50-75); Platelet Count 271 X10^3/uL (150-400); Red Blood Cell Count 4.54 X10^6/uL (4.5-5.9)
[2023-12-08 19:48] LABS: Prostate Specific Antigen 0.364 ng/mL (0.10-4.00)
== END ==
PROVIDERS: Specialist; Family Provider Family Medicine; PCP Family Medicine; Visit Provider Family Medicine
DX: Z13.220 Encounter for screening for lipoid disorders (principal); Z13.6 Encounter for screening for cardiovascular disorders; E29.1 Testicular hypofunction; G47.00 Insomnia, unspecified; N40.1 Benign prostatic hyperplasia with lower urinary tract symptoms; N13.8 Other obstructive and reflux uropathy; M81.0 Age-related osteoporosis without current pathological fracture; R97.20 Elevated prostate specific antigen [PSA]; Z98.890 Other specified postprocedural states; Z90.79 Acquired absence of other genital organ(s)
CPT/HCPCS: 80048; 80061; 84153; 85025

== ENCOUNTER → 2023-12-29 11:16 | Outpatient (CLI) | payer MEDICARE, SELFPAY ==
[2023-06-08 18:08] VITALS: BMI 26.4
--- NOTE | 2023-12-29 11:18 | DI.RAD.S_ITS ---
PROCEDURE: XR DEXA AXIAL SKELETON INDICATIONS: osteoporosis, fibular fracture COMPARISON: None. FINDINGS: Lumbar Spine: Bone mineral density 0.957 g/cm2, T score -0.8, baseline. Left Hip: Bone mineral density 0.804 g/cm2, T score -1.1, baseline. Left Femoral Neck: Bone mineral density is 0.680 g/cm2, T score -1.5, baseline. Right Hip: Bone mineral density 0.776 g/cm2, T score -1.4, baseline. Right Femoral Neck: Bone mineral density 0.692 g/cm2, T score -1.4, baseline. Fracture Risk Calculation (when applicable): 10-year fracture risk of a major osteoporotic fracture 19% and of a hip fracture 14%. (T score greater or equal to -1.0 to: NORMAL) (T score from -1.1 to -2.4: OSTEOPENIA) (T score less than or equal to -2.5: OSTEOPOROSIS) IMPRESSION: Osteopenia. Follow-up guidelines as follows: Osteoporosis: Consider a repeat DEXA and Vertebral Fracture Assessment (VFA) exam in 2 years or sooner if medically necessary, to reassess this patient's status. Osteopenia: Consider a repeat DEXA in 2-3 years to reassess this patient's status, or if there is a new clinical indication. Normal: Consider a repeat DEXA in 5 years or sooner, or if there is a new clinical indication. Dictated by: Mike Rodríguez M.D. on 12/29/2023 at 13:50 Approved by: Mike Rodríguez M.D. on 12/29/2023 at 13:51
== END ==
PROVIDERS: Family Provider Family Medicine; PCP Family Medicine; Referring Provider Family Medicine; Visit Provider Family Medicine
DX: M81.0 Age-related osteoporosis without current pathological fracture (principal); Z87.898 Personal history of other specified conditions
CPT/HCPCS: 51798; 77080; 99214

== ENCOUNTER → 2024-01-21 09:23 | Outpatient (CLI) | payer MEDICARE, SELFPAY ==
[2023-06-08 18:08] VITALS: BMI 26.4
== END ==
PROVIDERS: Family Provider Family Medicine; PCP Family Medicine; Visit Provider Specialist
DX: N13.8 Other obstructive and reflux uropathy (principal); N40.1 Benign prostatic hyperplasia with lower urinary tract symptoms; Z87.898 Personal history of other specified conditions
CPT/HCPCS: 87086

== ENCOUNTER → 2024-05-27 10:12 | Outpatient (CLI) | payer MEDICARE, SELFPAY ==
[2024-05-13 15:20] VITALS: BMI 26.4
[2024-05-27 21:49] LABS: Add Manual Diff / Slide Review NO; Basophils Absolute Auto 100 /uL (0-100); Eosinophils Absolute Auto 300 /uL (0-450); Eosinophils Percent Auto 4.3 % (2-4); Hematocrit 43.1 % (41-53); Hemoglobin 14.5 g/dL (13.5-17.5); Lymphocytes Absolute Auto 1600 /uL (1100-4500); Mean Corpuscular HGB Conc 33.7 % (30-36); Mean Corpuscular Hemoglobin 30.2 PG (26-34); Mean Corpuscular Volume 89.7 fL (80-100); Monocytes Absolute Auto 500 /uL (0-900); Monocytes Percent Auto 7.8 % (3-14); Neutrophils Absolute Auto 3700 /uL (1500-7000); Neutrophils Percent Auto 60.9 % (50-75); Platelet Count 210 X10^3/uL (150-400); Red Blood Cell Count 4.81 X10^6/uL (4.5-5.9); Red Cell Distribution Width 14.5 % (11.6-14.8)
[2024-05-27 21:57] LABS: BUN Creatinine Ratio 28.7 (6-22); Blood Urea Nitrogen 27 mg/dL (9-20); Calcium 9.2 mg/dL (8.4-10.2); Carbon Dioxide 29 mmol/L (22-32); Chloride 104 mmol/L (98-107); Cholesterol 176 mg/dL (140-199); Estimated Glomerular Filt Rate > 60 mL/min (>60); Glucose 85 mg/dL (80-110); HDL Cholesterol 63 mg/dL (40-60); HEMOLYSIS 23 (0-50); LDL Cholesterol Calculated 101 mg/dL (<100); Potassium 4.1 mmol/L (3.4-5.1); Sodium 137 mmol/L (137-145); Triglycerides 61 mg/dL (35-150)
== END ==
PROVIDERS: Family Provider Family Medicine; PCP Family Medicine; Visit Provider Family Medicine
DX: R60.0 Localized edema (principal); N40.1 Benign prostatic hyperplasia with lower urinary tract symptoms; N13.8 Other obstructive and reflux uropathy; E29.1 Testicular hypofunction; Z86.718 Personal history of other venous thrombosis and embolism
CPT/HCPCS: 80048; 80061; 85025